=== PATIENT | male | born 1955 | race Caucasian/White ===

== ENCOUNTER 2020-08-06 06:39 | Day surgery (SDC) | payer OTHER ==
[2020-07-31 15:58] LABS: BASOPHILS % (AUTO) 0.5 % (0-1); EOSINOPHILS # (AUTO) 0.7 X10'3 (0-0.9); EOSINOPHILS % (AUTO) 9.7 % (0-6); LYMPHOCYTES # (AUTO) 1.3 X10'3 (1.1-4.8); LYMPHOCYTES % (AUTO) 16.9 % (21-51); MEAN CORPUSCULAR HEMOGLOBIN 28.7 PG (27.0-31.0); MEAN CORPUSCULAR HGB CONC 33.2 g/dL (33.0-36.5); MEAN CORPUSCULAR VOLUME 86.4 FL (78-98); MEAN PLATELET VOLUME 7.7 FL (7.4-10.4); MONOCYTES # (AUTO) 1.1 X10'3 (0-0.9); MONOCYTES % (AUTO) 14.2 % (2-12); NEUTROPHILS # (AUTO) 4.4 X10'3 (1.8-7.7); NEUTROPHILS % (AUTO) 58.7 % (42-75); PRE OP HEMATOCRIT 45.7 % (42.0-52.0); PRE OP HEMOGLOBIN 15.2 g/dL (14.0-17.9); PRE OP PLATELET COUNT 246 X10'3 (140-440); RED BLOOD COUNT 5.29 X10'6 (4.70-6.10); RED CELL DISTRIBUTION WIDTH 22.2 % (11.5-14.5)
[2020-07-31 16:16] LABS: ALBUMIN 3.9 G/DL (3.4-5.0); ALKALINE PHOSPHATASE 107 IU/L (46-116); BLOOD UREA NITROGEN 22 MG/DL (7-18); BUN/CREATININE RATIO 17.3 (5.4-32.0); CALCIUM 9.7 MG/DL (8.5-10.1); CHLORIDE 105 MMOL/L (99-107); CREATININE 1.27 MG/DL (0.60-1.10); PRE OP ALT 47 U/L (30-65); PRE OP ANION GAP 10 (8-16); PRE OP AST 30 U/L (10-37); PRE OP BILIRUB, TOTAL 1.4 MG/DL (0.0-1.0); PRE OP GLUCOSE 109 MG/DL (70-104); PRE OP SODIUM 142 MMOL/L (135-145); TOTAL CARBON DIOXIDE 27.3 MMOL/L (24-32); TOTAL PROTEIN 7.9 G/DL (6.4-8.2); eGFR 57 ML/MIN
[2020-07-31 18:15] LABS: ANISOCYTOSIS 3+; PLATELET ESTIMATE NORMAL; SPHEROCYTES 2+
[~2020-08-06] VITALS: Ht 188 cm; Wt 107.2 kg
[2020-08-06] VITALS (11 sets, daily range): BP systolic 130–152; BP diastolic 74–99
[~2020-08-06 06:39] MED LIST: ASPI81TA52 PO; ATOR40TA72 PO; CARV12.545 PO; DOCUMENT DATE & TIME OF BETA-BLOCKER PO ONE; FURO20TA4 PO; LEVO50TA8 PO; LISI-604 PO; POTA10CA44 PO; SPIR25TA5 PO; famotidine 20mg tablet PO ONE; ringers solution, lacted 1,000 ML IV SCH
[2020-08-06] MEDS ORDERED: ceFAZolin 2gm in dextrose, iso 50 ML IV ONE (07:58)
[2020-08-06] MEDS ORDERED: cloNIDine hcl/PF 100mcg/ml inj ONE (08:20)
[2020-08-06] MEDS ORDERED: fentaNYL/PF 50MCG/1 ML 2ML syringe ONE (08:24)
[2020-08-06] MEDS ORDERED: ROPIVAcaine 0.5% (5mg/ml) 30ml vial ONE (08:25)
[2020-08-06] MEDS ORDERED: rocuronium 10mg/ml inj IV ONE (08:25)
[2020-08-06] MEDS ORDERED: propofol inj 20 ML IV ONE (08:25)
[2020-08-06] MEDS ORDERED: MIDAZolam 5mg/5ml vial ONE (08:25)
[2020-08-06] MEDS ORDERED: ringers solution, lacted 1,000 ML IV SCH (08:35)
[2020-08-06] MEDS ORDERED: morphine 4 MG/ML inj SYRINge IV PRN (08:35)
[2020-08-06] MEDS ORDERED: morphine 2 MG/ML inj. syringe IV PRN (08:35)
[2020-08-06] MEDS ORDERED: proCHLORperazine 10 MG/2 ml inj IV PRN (08:35)
[2020-08-06] MEDS ORDERED: ondansetron/PF 4mg/2ml inj IV PRN (08:35)
[2020-08-06] MEDS ORDERED: meperidine/PF 25mg/ml syringe IV PRN ×3 (08:35)
[2020-08-06] MEDS ORDERED: sevoflurane 250ml liquid IH ONE (08:39)
--- NOTE | 2020-08-06 12:45 | NUR ---
Received from OR via BED, accompanied by Anesthesiologist DR CRAFT and report given by Anesthesiolgist. PATIENT A&OX4, DENIES PAIN, V/S WNL, NEUROVASCULAR CHECKS INTACT, 20G PIV RUE, SCD ON, DRESSING TO LEFT SHOULDER WITH SLING ON CDI
--- NOTE | 2020-08-06 14:05 | NUR ---
PATIENT A&OX4, DENIES PAIN, V/S WNL, NEUROVASCULAR CHECKS INTACT, 20G PIV RUE D/C, SCD OFF, DRESSING TO LEFT SHOULDER WITH SLING ON CDI . i HAVE REVIEWED D/C INSTRUCTIONS WITH PATIENT AND HE HAS VERBALIZED UNDERSTANDING. PATIENT D/C WITH ALL BELONGINGS AND D/C HOME WITH FAMILY.
[2020-08-07] MEDS ORDERED: ERYT1OIN6 LEFTEYE (09:43)
== END 2020-08-06 14:05 | disposition home or self-care (01) ==
LOC: PAS 06:39
PROVIDERS: ATTEND Orthopaedic Surgery
DX: S46.012A Strain of muscle(s) and tendon(s) of the rotator cuff of left shoulder, initial encounter (principal); S43.432A Superior glenoid labrum lesion of left shoulder, initial encounter; M75.22 Bicipital tendinitis, left shoulder; M25.512 Pain in left shoulder; M25.712 Osteophyte, left shoulder; G89.18 Other acute postprocedural pain; I50.9 Heart failure, unspecified; Z98.890 Other specified postprocedural states; Z20.822 Contact with and (suspected) exposure to COVID-19; Z79.899 Other long term (current) drug therapy; X58.XXXA Exposure to other specified factors, initial encounter; Y93.89 Activity, other specified; Y92.89 Other specified places as the place of occurrence of the external cause; Y99.8 Other external cause status
CPT/HCPCS: 23430; 29807; 29827; 36415; 64415; 76942; 80053; 82948; 85025; 87635; C1713; J0735; J2250; J2704; J3010; 85008; A4215; A4565; A4618; A7000; J2795; J7120

== ENCOUNTER 2020-08-07 07:53 | Emergency (ER) | payer OTHER ==
[~2020-08-07] VITALS: Ht 188 cm; Wt 95.3 kg
[~2020-08-07 07:53] MED LIST changes: -DOCUMENT DATE & TIME OF BETA-BLOCKER PO ONE; -famotidine 20mg tablet PO ONE; -ringers solution, lacted 1,000 ML IV SCH
[2020-08-07 07:57] VITALS: BP 125/85
[2020-08-07] MEDS ORDERED: proparacaine 0.5% ophthalmic drops 15ml EACHEYE ONE (09:10)
[2020-08-07] MEDS ORDERED: erythromycin ophthalmic ointment 1gm tube RIGHTEYE ONE (09:40)
[2020-08-07] MEDS ORDERED: ERYT1OIN6 LEFTEYE (09:43)
== END 2020-08-07 10:28 | disposition home or self-care (01) ==
LOC: ER 07:53
DX: S00.211A Abrasion of right eyelid and periocular area, initial encounter (principal); H57.11 Ocular pain, right eye; Z98.890 Other specified postprocedural states; Z79.82 Long term (current) use of aspirin; Z79.899 Other long term (current) drug therapy; Z79.2 Long term (current) use of antibiotics; X58.XXXA Exposure to other specified factors, initial encounter; Y93.89 Activity, other specified; Y92.89 Other specified places as the place of occurrence of the external cause; Y99.8 Other external cause status
CPT/HCPCS: 99283

== ENCOUNTER 2020-11-10 07:58 | Outpatient (CLI) | payer MEDICARE ==
[~2020-11-10 07:58] MED LIST changes: +ASPI-1 PO; -ATOR40TA72 PO; -FURO20TA4 PO; +GABA300C PO; -LEVO50TA8 PO; -LISI-604 PO; +LISI-790 PO; +OXYC-658 PO; -POTA10CA44 PO; +SENN-173 PO; -SPIR25TA5 PO
[2020-11-10 08:43] LABS: BASOPHILS % (AUTO) 0.5 % (0-1); EOSINOPHILS # (AUTO) 0.4 X10'3 (0-0.9); EOSINOPHILS % (AUTO) 5.1 % (0-6); HEMATOCRIT 47.1 % (42.0-52.0); HEMOGLOBIN 16.1 g/dl (14.0-17.9); LYMPHOCYTES # (AUTO) 1.3 X10'3 (1.1-4.8); LYMPHOCYTES % (AUTO) 17.1 % (21-51); MEAN CORPUSCULAR HEMOGLOBIN 32.1 PG (27.0-31.0); MEAN CORPUSCULAR HGB CONC 34.1 g/dL (33.0-36.5); MEAN CORPUSCULAR VOLUME 94.1 FL (78-98); MEAN PLATELET VOLUME 7.5 FL (7.4-10.4); MONOCYTES # (AUTO) 0.9 X10'3 (0-0.9); MONOCYTES % (AUTO) 11.2 % (2-12); NEUTROPHILS % (AUTO) 66.1 % (42-75); PLATELET COUNT 233 X10'3 (140-440); RED BLOOD COUNT 5.01 X10'6 (4.70-6.10); RED CELL DISTRIBUTION WIDTH 14.5 % (11.5-14.5); WHITE BLOOD COUNT 7.6 X10'3 (4.5-11.0)
[2020-11-10 08:54] LABS: PARTIAL THROMBOPLASTIN TIME 25 SECONDS (22-32)
[2020-11-10 08:56] LABS: ALANINE AMINOTRANSFERASE 39 U/L (12-78); ALBUMIN/GLOBULIN RATIO 1.1 (1.1-1.5); ALKALINE PHOSPHATASE 110 IU/L (46-116); ANION GAP 7 (8-16); ASPARTATE AMINO TRANSFERASE 28 U/L (10-37); BLOOD UREA NITROGEN 26 MG/DL (7-18); BUN/CREATININE RATIO 19.8 (5.4-32.0); CALCIUM 9.3 MG/DL (8.5-10.1); CHLORIDE 106 MMOL/L (99-107); CREATININE 1.31 MG/DL (0.60-1.10); GLUCOSE 102 MG/DL (70-104); POTASSIUM 4.9 MMOL/L (3.5-5.1); SODIUM 141 MMOL/L (135-145); TOTAL PROTEIN 7.7 G/DL (6.4-8.2); eGFR 55 ML/MIN
--- NOTE | 2020-11-10 09:13 | NUR ---
UNABLE TO COLLECT COVID-19 SEND OUT SWAB. AFTER EXPLAINING THE PROCEDURE, IN DEPTH, PT JERK HEAD AWAY AND GRABBED WRITERS ARM AND PUSHED FARE ENFORCEMENT OFFICER AWAY. PT WANTED FARE ENFORCEMENT OFFICER TO SEND OUT THE SWAB FOR TESTING REGARDLESS OF HAVING COLLECTED PER PROTOCOL. HE WENT ON TO EXPLAIN A PREVIOUS COVID-19 TEST HE HAD DONE AT THIS FACILITY WAS COLLECTED, SENT OUT, AND RESULTED AFTER ONLY HAVING GONE IN A LITTLE UP HIS NOSE AND ONLY ONE NOSTRIL. FARE ENFORCEMENT OFFICER EXPLAINED PROCEDURE AND THAT FARE ENFORCEMENT OFFICER WOULD NOT SEND IN A TEST NOT COLLECTED PER PROTOCOL. 22G IV STARTED WITHOUT COMPLICATIONS OR COMPLAINTS TO RIGHT AC, FLUSHED, AND SECURED.
[2020-11-10] MEDS ORDERED: IODIXANOL 320 MG/ML INFUS..BTL 100ML IV ONE (09:44)
[2020-11-10] MEDS ORDERED: IODIXANOL 320 MG/ML INFUS..BTL 50ML IV ONE (09:44)
== END 2020-11-10 23:59 | disposition home or self-care (01) ==
LOC: RT 07:58
PROVIDERS: ATTEND Internal Medicine Cardiovascular Disease
DX: K80.20 Calculus of gallbladder without cholecystitis without obstruction (principal); R60.9 Edema, unspecified; M16.0 Bilateral primary osteoarthritis of hip; M47.816 Spondylosis without myelopathy or radiculopathy, lumbar region; K57.30 Diverticulosis of large intestine without perforation or abscess without bleeding; I70.0 Atherosclerosis of aorta; I70.202 Unspecified atherosclerosis of native arteries of extremities, left leg; I70.8 Atherosclerosis of other arteries; I25.10 Atherosclerotic heart disease of native coronary artery without angina pectoris; M19.012 Primary osteoarthritis, left shoulder; I31.3 Pericardial effusion (noninflammatory); I65.23 Occlusion and stenosis of bilateral carotid arteries
CPT/HCPCS: 36415; 71046; 71275; 74174; 80053; 85025; 85610; 85730; 93880; 94010; 94727; 94729; Q9967

== ENCOUNTER 2021-06-19 05:41 | Day surgery (SDC) | payer OTHER ==
[2021-06-03 15:33] LABS: BASOPHILS % (AUTO) 0.5 % (0-1); EOSINOPHILS # (AUTO) 0.5 X10'3 (0-0.9); EOSINOPHILS % (AUTO) 6.8 % (0-6); LYMPHOCYTES # (AUTO) 1.4 X10'3 (1.1-4.8); LYMPHOCYTES % (AUTO) 20.9 % (21-51); MEAN CORPUSCULAR HEMOGLOBIN 29.3 PG (27.0-31.0); MEAN CORPUSCULAR HGB CONC 33.4 g/dL (33.0-36.5); MEAN CORPUSCULAR VOLUME 87.6 FL (78-98); MEAN PLATELET VOLUME 7.9 FL (7.4-10.4); MONOCYTES # (AUTO) 0.8 X10'3 (0-0.9); MONOCYTES % (AUTO) 11.5 % (2-12); NEUTROPHILS % (AUTO) 60.3 % (42-75); PRE OP HEMATOCRIT 43.7 % (42.0-52.0); PRE OP HEMOGLOBIN 14.6 g/dL (14.0-17.9); PRE OP PLATELET COUNT 238 X10'3 (140-440); RED BLOOD COUNT 4.99 X10'6 (4.70-6.10); RED CELL DISTRIBUTION WIDTH 15.6 % (11.5-14.5)
[2021-06-03 16:20] LABS: ALBUMIN 3.9 G/DL (3.4-5.0); ALBUMIN/GLOBULIN RATIO 1.1 (1.1-1.5); ALKALINE PHOSPHATASE 101 IU/L (46-116); BLOOD UREA NITROGEN 20 MG/DL (7-18); BUN/CREATININE RATIO 14.5 (5.4-32.0); CHLORIDE 110 MMOL/L (99-107); CREATININE 1.38 MG/DL (0.60-1.10); PRE OP ALT 40 U/L (30-65); PRE OP ANION GAP 9 (8-16); PRE OP AST 23 U/L (10-37); PRE OP BILIRUB, TOTAL 0.6 MG/DL (0.0-1.0); PRE OP GLUCOSE 111 MG/DL (70-104); PRE OP POTASSIUM 4.3 MMOL/L (3.4-5.1); PRE OP SODIUM 146 MMOL/L (135-145); TOTAL CARBON DIOXIDE 27.1 MMOL/L (24-32); TOTAL PROTEIN 7.5 G/DL (6.4-8.2); eGFR 52 ML/MIN
[2021-06-19] VITALS (20 sets, daily range): BP systolic 103–139; BP diastolic 69–90
[~2021-06-19] VITALS: Ht 188 cm; Wt 109.9 kg
[~2021-06-19 05:41] MED LIST changes: -ASPI-1 PO; +ATOR40TA71 PO; +DOCUMENT DATE & TIME OF BETA-BLOCKER PO ONE; +FURO-150 PO; -GABA300C PO; +LEVO50TA8 PO; -LISI-790 PO; +LISI5TAB22 PO; -OXYC-658 PO; +POTA10TA52 PO; -SENN-173 PO; +SPIR25TA5 PO; +cefazolin/dext.iso 2gm/50ml IV ONE; +famotidine 20mg tablet PO ONE; +ringers solution, lacted 1,000 ML IV SCH; +tranexamic acid inj. 1,000 MG in 0.7% saline 100 ML PMX IV ONE; +vancomycin 1,500 MG in NS 300ml IV soln IV ONE
[2021-06-19] MEDS ORDERED: vancomycin 1,000mg inj ONE (07:08)
[2021-06-19 07:11] LABS: ISTAT CREATININE 1.1 mg/dL (0.8-1.3); ISTAT HGB 15.6 g/dl (14.0-18.0); ISTAT IONIZED CALCIUM 1.17 mmol/L (1.03-1.32); ISTAT K 4.5 mmol/L (3.5-5.1); POC BUN/CREATININE RATIO 27.3 (5.4-32.0)
[2021-06-19] MEDS ORDERED: MIDAZolam 1 MG/ML 5ML VIAL ONE (07:37)
[2021-06-19] MEDS ORDERED: fentaNYL/PF 50MCG/1 ML 2ML syringe ONE (07:37)
[2021-06-19] MEDS ORDERED: sevoflurane 250ml liquid IH ONE (07:46)
[2021-06-19] MEDS ORDERED: meperidine/PF 25mg/ml syringe IV PRN ×3 (09:25)
[2021-06-19] MEDS ORDERED: ringers solution, lacted 1,000 ML IV SCH (09:25)
[2021-06-19] MEDS ORDERED: morphine 2 MG/ML inj. syringe IV PRN (09:25)
[2021-06-19] MEDS ORDERED: proCHLORperazine 10 MG/2 ml inj IV PRN (09:25)
[2021-06-19] MEDS ORDERED: morphine 4 MG/ML inj SYRINge IV PRN (09:25)
[2021-06-19] MEDS ORDERED: ondansetron/PF 4mg/2ml inj IV PRN ×2 (09:25→11:15)
[2021-06-19] MEDS ORDERED: ROPIVAcaine 0.2% (10 MG/5 ML) BOLUS INJECTION INTERSCALE PRN (09:25)
[2021-06-19] MEDS ORDERED: tranexamic acid inj. 1,000 MG in 0.7% saline 100 ML PMX IV ONE (10:45)
[2021-06-19] MEDS ORDERED: ROPIVAcaine 0.5% (5mg/ml) 30ml vial ONE (11:04)
[2021-06-19] MEDS ORDERED: propofol inj 20 ML IV ONE (11:05)
--- NOTE | 2021-06-19 11:07 | NUR ---
Received from OR via TEENA, accompanied by Anesthesiologist DR CRAFT and report given by Anesthesiologist. PT DROWSY W/LMA, NO S/S OF DISTRESS/DISCOMFORT. LEFT SHOULDER W/DRSG, ICE PACK, SHOULDER WRAP, SLING CDI. PT AWAKE SHORTLY AFTER ARRIVAL, LMA D/CD. PT BREATHING WELL. Addendum: 06/19/21 at 1133 by Janice Kline RN Amended: Links added.
[2021-06-19] MEDS ORDERED: diphenhydrAMINE 25mg capsule PO PRN ×2 (11:15)
[2021-06-19] MEDS ORDERED: HYDROmorphone inj. 0.5 MG/0.5 ML DISP.SYRIN IV PRN (11:15)
[2021-06-19] MEDS ORDERED: oxyCODONE IR 5mg (immed. release) tablet PO PRN (11:15)
[2021-06-19] MEDS ORDERED: acetaminophen 325mg tablet PO PRN (11:15)
[2021-06-19] MEDS ORDERED: magnesium hydroxide 30ml (MOM) UD suspension PO PRN (11:15)
[2021-06-19] MEDS ORDERED: bisacodyl 10mg suppository rectal RC PRN (11:15)
[2021-06-19] MEDS: ROPIVAcaine 0.2%/PF PUMP/bolus 545 ML INTERSCALE SCH (11:41)
--- NOTE | 2021-06-19 12:47 | NUR ---
Report called to receiving nurse. Transferred via BED W/CELL PHONE, PLASTER PATTERNMAKER W/BLUE TOOTH, GLASSES AND CLOTHING TO ROOM 356B, BLL, CALL LIGHT GIVEN, SIDE RAILS UP X 2. COVERING RN AT BEDSIDE TO RECEIVE PT. Special Issues communicated to receiving nurse. YES. Addendum: 06/19/21 at 1259 by Janice Kline RN Amended: Links added.
[2021-06-19] MEDS ORDERED: tranexamic acid inj. 1,100 MG in normal saline 100ml IV soln 100 ML IV ONE (14:00)
[2021-06-19] MEDS: gabapentin 300mg capsule PO SCH ×2 (14:44→20:17)
[2021-06-19] MEDS: acetaminophen 325mg tablet PO SCH ×2 (14:45→20:22)
[2021-06-19] MEDS: oxyCODONE IR 5mg (immed. release) tablet PO PRN (14:53)
[2021-06-19] MEDS: potassium cl 20mEq in 1/2 NS 1,000 ML IV SCH ×2 (18:19→20:24)
[2021-06-19] MEDS: ceFAZolin/D5W- 1GM premix 50 ML IV SCH (18:19)
--- NOTE | 2021-06-19 18:41 | NUR ---
Patient in room [facility] 356B. I have received report from Temi SPAIN and had the opportunity to ask questions and assume patient care.
--- NOTE | 2021-06-19 18:48 | NUR ---
Patient in room [facility] 356. I have received report from ALVIN SPAIN and had the opportunity to ask questions and assume patient care.
[2021-06-19] MEDS ORDERED: vancomycin/NS 1 GM ADD-VANTAGE 250 ML IV SCH (20:00)
[2021-06-19] MEDS: HYDROmorphone 1 mg/ml syringe IV PRN (20:17)
[2021-06-19] MEDS ORDERED: sennosides 8.6mg tablet PO SCH (21:00)
[2021-06-20] VITALS: BP 128/90
[2021-06-20] MEDS: ceFAZolin/D5W- 1GM premix 50 ML IV SCH (00:08)
[2021-06-20] MEDS: acetaminophen 325mg tablet PO SCH ×3 (01:55→13:45)
[2021-06-20] MEDS: HYDROmorphone 1 mg/ml syringe IV PRN ×2 (01:56→07:26)
[2021-06-20] MEDS: potassium cl 20mEq in 1/2 NS 1,000 ML IV SCH (04:43)
[2021-06-20 04:55] VITALS: BP 140/90
[2021-06-20 06:35] LABS: BASOPHILS % (AUTO) 0.3 % (0-1); EOSINOPHILS # (AUTO) 0.1 X10'3 (0-0.9); EOSINOPHILS % (AUTO) 0.8 % (0-6); HEMATOCRIT 38.7 % (42.0-52.0); HEMOGLOBIN 13.2 g/dl (14.0-17.9); LYMPHOCYTES % (AUTO) 10.9 % (21-51); MEAN CORPUSCULAR HEMOGLOBIN 29.7 PG (27.0-31.0); MEAN CORPUSCULAR HGB CONC 34.2 g/dL (33.0-36.5); MEAN CORPUSCULAR VOLUME 86.9 FL (78-98); MEAN PLATELET VOLUME 7.9 FL (7.4-10.4); MONOCYTES # (AUTO) 1.5 X10'3 (0-0.9); MONOCYTES % (AUTO) 16.1 % (2-12); NEUTROPHILS # (AUTO) 6.7 X10'3 (1.8-7.7); NEUTROPHILS % (AUTO) 71.9 % (42-75); PLATELET COUNT 217 X10'3 (140-440); RED BLOOD COUNT 4.45 X10'6 (4.70-6.10); RED CELL DISTRIBUTION WIDTH 15.5 % (11.5-14.5); WHITE BLOOD COUNT 9.4 X10'3 (4.5-11.0)
--- NOTE | 2021-06-20 06:36 | NUR ---
Problems reprioritized. Patient report given, questions answered & plan of care reviewed with KAREN SPAIN.
[2021-06-20 06:44] LABS: ANION GAP 9 (8-16); CHLORIDE 107 MMOL/L (99-107); POTASSIUM 4.4 MMOL/L (3.5-5.1); SODIUM 140 MMOL/L (135-145); TOTAL CARBON DIOXIDE 23.7 MMOL/L (24-32)
[2021-06-20 07:00] VITALS: BP 160/95
--- NOTE | 2021-06-20 07:01 | NUR ---
Patient in room [facility] 356. I have received report from JUDIT Domínguez and rosie Patel RN and had the opportunity to ask questions and assume patient care.
[2021-06-20] MEDS ORDERED: carvedilol 6.25mg tablet PO SCH (08:00)
[2021-06-20] MEDS ORDERED: aspirin 81mg, enteric-coated 1 TAB TABLET.DR PO SCH (08:00)
[2021-06-20] MEDS ORDERED: spironolactone 25 MG tablet PO SCH (08:00)
[2021-06-20] MEDS ORDERED: lisinopril 5mg tablet PO SCH (08:00)
[2021-06-20] MEDS ORDERED: POTASSIUM BICARBONATE/CIT AC 10 MEQ TABLET.EFF PO SCH (08:00)
[2021-06-20] MEDS ORDERED: furosemide 20MG tablet PO SCH (08:00)
[2021-06-20] MEDS ORDERED: atorvastatin 20mg tablet PO SCH (08:00)
[2021-06-20] MEDS ORDERED: levoTHYROXINE 25mcg tablet PO SCH (08:00)
[2021-06-20] MEDS ORDERED: aspirin 325mg tablet PO SCH (08:30)
[2021-06-20] MEDS: oxyCODONE IR 5mg (immed. release) tablet PO PRN (09:38)
[2021-06-20] MEDS: gabapentin 300mg capsule PO SCH ×2 (09:38→13:45)
[2021-06-20 11:00] VITALS: BP 149/94
[2021-06-20] MEDS: ROPIVAcaine 0.2%/PF PUMP/bolus 545 ML INTERSCALE SCH (11:26)
--- NOTE | 2021-06-20 17:05 | NUR ---
Pt discharged to home, with all belongings, in private vehicle accompanied by son. Discharge instructions and medications reviewed. 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 Pt educated on signs/symptoms of infection, with instructions to contact Dr Vu' office with any concerns. Dressing to left shoulder changed per written orders, and pt provided with 2 extra island dressings to take home. Education provided on removing OnQ pain pump when empty, as well as powder packs given to patient. IV DC'd, cannula intact. Pt escorted to front lobby by primary RN.
[2021-06-20] MEDS ORDERED: celeCOXIB 100mg capsule PO SCH (20:00)
[2021-06-21] MEDS ORDERED: acetaminophen 325mg tablet PO PRN (11:15)
== END 2021-06-20 17:05 | disposition home or self-care (01) ==
LOC: PAS 05:41 → EDSTATUS 07:30 → SUR 3N 11:20 → PAS 06-20 17:05
PROVIDERS: ATTEND Orthopaedic Surgery
DX: M19.012 Primary osteoarthritis, left shoulder (principal); I50.9 Heart failure, unspecified; E66.9 Obesity, unspecified; Z68.31 Body mass index [BMI] 31.0-31.9, adult; Z98.890 Other specified postprocedural states; Z95.2 Presence of prosthetic heart valve; Z87.891 Personal history of nicotine dependence; Z79.899 Other long term (current) drug therapy
CPT/HCPCS: 23472; 36415; 64416; 73020; 76942; 80047; 80051; 80053; 84443; 85025; 87081; 93005; C1776; J0690; J1170; J2250; J2704; J2795; J3010; J3370; J3480; J3490; J7030; J7040; J7120; Z7506; Z7508; Z7512; 76937; A4565; A4618; A7000; C9250; G0378